=== PATIENT | male | born 1990 | race Caucasian/White ===

== ENCOUNTER 2025-03-02 00:50 | Emergency (ER) | payer OTHER ==
[~2025-03-02] VITALS: Ht 162.6 cm; Wt 64.0 kg
[2025-03-02 01:00] VITALS: O2SAT 98
[2025-03-02] MEDS: VISCOUS LIDOCAINE 2% 15 ML UDC PO ONE (02:12)
[2025-03-02] MEDS: MAGNESIUM/ALUMINUM HYDROXIDE/SIMETHICONE 30ML UDC PO ONE (02:12)
[2025-03-02] MEDS ORDERED: MAG355OR21 MT (02:35)
[2025-03-02] MEDS ORDERED: FAMO-135 PO (02:35)
[2025-03-02 02:44] VITALS: BP 128/84; PULSE 80; RESP 18; TEMP 36.9; O2SAT 98
== END 2025-03-02 02:45 | disposition home or self-care (01) ==
LOC: ER 00:50
DX: K29.70 Gastritis, unspecified, without bleeding (principal); E11.9 Type 2 diabetes mellitus without complications; Z79.899 Other long term (current) drug therapy; Z88.6 Allergy status to analgesic agent
CPT/HCPCS: 99283

== ENCOUNTER 2025-04-02 13:42 | Emergency (ER) | payer OTHER ==
[~2025-04-02] VITALS: Ht 157.5 cm; Wt 68.0 kg
[~2025-04-02 13:42] MED LIST: FAMO-135 PO; MAG355OR21 MT
[2025-04-02 13:54] VITALS: O2SAT 100
[2025-04-02 14:30] LABS: BASOPHILS % 0.5 % (0.0-2.0); CHLORIDE 105 mEq/L (98-107); EOSINOPHILS % 7.5 % (0.0-5.0); HEMATOCRIT. 40.8 % (42.0-52.0); HEMOGLOBIN. 14.2 g/dL (14.0-18.0); LYMPHOCYTES % 17.9 % (20.0-50.0); MEAN CORPUSCULAR HGB CONC 34.8 g/dL (31.0-37.0); MEAN CORPUSCULAR VOLUME 83.4 fL (80.0-94.0); MEAN PLATELET VOLUME 6.8 fl (7.4-10.4); MONOCYTES % 5.3 % (2.0-8.0); NEUTROPHILS % 68.8 % (40.0-76.0); PLATELET 263 x1000/uL (130-400); POTASSIUM 3.9 mEq/L (3.5-5.1); RED BLOOD CELL COUNT 4.89 mill/uL (4.7-6.1); RED CELL DISTRIBUTION WIDTH 14.2 % (11.6-14.6); SODIUM 141 mEq/L (136-145); WHITE BLOOD COUNT 8.7 x1000/uL (4.5-11.0)
[2025-04-02 14:31] LABS: CARBON DIOXIDE 31 mEq/L (21-32)
[2025-04-02 14:32] LABS: CALCIUM 9.7 mg/dL (8.7-10.4)
[2025-04-02 14:35] VITALS: BP 143/91; PULSE 80; RESP 18; TEMP 36.8; O2SAT 99
[2025-04-02 14:36] LABS: GLUCOSE 135 mg/dL (70-105)
[2025-04-02 14:37] LABS: UREA NITROGEN BLOOD 14 mg/dL (9-23)
[2025-04-02] MEDS: ACETAMINOPHEN 500MG TABLET PO ONE (15:52)
[2025-04-02] MEDS: ONDANSETRON HCL 4MG TABLET PO ONE (15:52)
[2025-04-02] MEDS: MAGNESIUM/ALUMINUM HYDROXIDE/SIMETHICONE 30ML UDC PO ONE (15:52)
[2025-04-02 15:59] LABS: CLARITY URINE CLEAR (CLEAR); GLUCOSE URINE NEGATIVE (NEGATIVE); KETONES URINE NEGATIVE (NEGATIVE); LEUKOCYTE ESTERASE URINE TRACE (NEGATIVE); NITRITE URINE NEGATIVE (NEGATIVE); OCCULT BLOOD URINE NEGATIVE (NEGATIVE); PH URINE 7.5 (4.5-8.0); PROTEIN URINE NEGATIVE (NEGATIVE); SPECIFIC GRAVITY URINE 1.012 (1.005-1.030)
[2025-04-02 16:11] LABS: ALANINE AMINOTRANSFERASE 39 IU/L (10-49); ALBUMIN 5.2 g/dL (3.2-4.8); ASPARTATE AMINOTRANSFERASE 28 IU/L (<34); BILIRUBIN DIRECT 0.1 mg/dL (<=3.0); BILIRUBIN TOTAL 0.4 mg/dL (0.1-1.0); PROTEIN TOTAL 7.5 g/dL (6.0-8.3)
[2025-04-02 16:26] LABS: COLOR URINE STRAW (YELLOW)
[2025-04-02 16:27] LABS: BACTERIA URINE NONE SEEN; RBC URINE NONE SEEN /hpf (0-2); SQUAMOUS EPITHELIAL CELL URINE RARE /lpf (RARE/1+); WBC URINE 0-2 /hpf (0-2)
== END 2025-04-02 16:03 | disposition left against medical advice (07) ==
LOC: ER 13:42
DX: K29.70 Gastritis, unspecified, without bleeding (principal); F12.10 Cannabis abuse, uncomplicated; E11.9 Type 2 diabetes mellitus without complications; Z88.6 Allergy status to analgesic agent
CPT/HCPCS: 80076; 80048; 81003; 83690; 85025; 36415; 99283; Q0162; Z7610

== ENCOUNTER 2025-04-23 01:24 | Emergency (ER) | payer OTHER ==
[~2025-04-23] VITALS: Ht 162.6 cm; Wt 63.0 kg
[2025-04-23 01:34] VITALS: O2SAT 97
[2025-04-23] MEDS ORDERED: AMOX1TAB16 MT (03:21)
[2025-04-23 03:28] VITALS: BP 114/72; PULSE 70; RESP 16; TEMP 36.8; O2SAT 97
== END 2025-04-23 03:27 | disposition home or self-care (01) ==
LOC: ER 01:24
DX: H66.90 Otitis media, unspecified, unspecified ear (principal); F12.10 Cannabis abuse, uncomplicated; Z88.5 Allergy status to narcotic agent; Z88.6 Allergy status to analgesic agent; Z79.899 Other long term (current) drug therapy; Z98.890 Other specified postprocedural states
CPT/HCPCS: 99283

== ENCOUNTER 2025-04-25 13:50 | Emergency (ER) | payer OTHER ==
[~2025-04-25] VITALS: Ht 165.1 cm; Wt 68.0 kg
[~2025-04-25 13:50] MED LIST changes: +AMOX1TAB16 MT
[2025-04-25 14:07] VITALS: O2SAT 99
[2025-04-25] MEDS ORDERED: CIPHCO EACH EAR (14:55)
[2025-04-25 15:01] VITALS: BP 110/85; PULSE 82; RESP 16; TEMP 37.2; O2SAT 99
== END 2025-04-25 15:01 | disposition home or self-care (01) ==
LOC: ER 13:50
DX: H60.8X3 Other otitis externa, bilateral (principal); E11.9 Type 2 diabetes mellitus without complications; Z85.71 Personal history of Hodgkin lymphoma; Z88.5 Allergy status to narcotic agent; Z88.6 Allergy status to analgesic agent
CPT/HCPCS: 99283

== ENCOUNTER 2025-06-08 02:04 | Emergency (ER) | payer OTHER ==
[~2025-06-08] VITALS: Ht 160 cm; Wt 61.0 kg
[~2025-06-08 02:04] MED LIST changes: +CIPHCO EACH EAR
[2025-06-08 02:20] VITALS: PULSE 79; RESP 18; O2SAT 99
[2025-06-08 02:26] VITALS: BP 106/71; TEMP 36.7; O2SAT 96
[2025-06-09] MEDS ORDERED: IBUP-2029 MT (04:08)
[2025-06-09] MEDS ORDERED: METH-653 MT (04:08)
[2025-06-09] MEDS ORDERED: LIDO700A30 TP (04:09)
== END 2025-06-08 03:50 | disposition home or self-care (01) ==
LOC: ER 02:04
DX: H92.02 Otalgia, left ear (principal); E11.9 Type 2 diabetes mellitus without complications; F10.90 Alcohol use, unspecified, uncomplicated; F12.90 Cannabis use, unspecified, uncomplicated; Z87.19 Personal history of other diseases of the digestive system; Z88.5 Allergy status to narcotic agent; Z88.6 Allergy status to analgesic agent
CPT/HCPCS: 99282

== ENCOUNTER 2025-06-09 01:44 | Emergency (ER) | payer OTHER ==
[~2025-06-09] VITALS: Ht 160 cm; Wt 62.2 kg
[2025-06-09 01:52] VITALS: O2SAT 97
[2025-06-09 01:56] VITALS: BP 106/63; PULSE 93; RESP 20; TEMP 37.1; O2SAT 99
[2025-06-09 02:21] LABS: BASOPHILS % 0.6 % (0.0-2.0); EOSINOPHILS % 6.3 % (0.0-5.0); HEMATOCRIT. 36.6 % (42.0-52.0); HEMOGLOBIN. 12.5 g/dL (14.0-18.0); LYMPHOCYTES % 27.2 % (20.0-50.0); MEAN PLATELET VOLUME 6.8 fl (7.4-10.4); MONOCYTES % 5.3 % (2.0-8.0); NEUTROPHILS % 60.6 % (40.0-76.0); PLATELET 221 x1000/uL (130-400); RED BLOOD CELL COUNT 4.40 mill/uL (4.7-6.1); RED CELL DISTRIBUTION WIDTH 13.8 % (11.6-14.6)
[2025-06-09 02:32] LABS: INR 0.9
[2025-06-09 02:34] LABS: CREATININE 1.1 mg/dL (0.6-1.3); ETHANOL BLOOD < 10 mg/dL (<10); TROPONIN I HIGH SENSITIVITY 11 ng/L (3.0-53); UREA NITROGEN BLOOD 18 mg/dL (9-23)
[2025-06-09 02:36] LABS: ASPARTATE AMINOTRANSFERASE 23 IU/L (<34); BILIRUBIN DIRECT < 0.1 mg/dL (<=3.0); BILIRUBIN TOTAL 0.3 mg/dL (0.1-1.0); PROTEIN TOTAL 6.4 g/dL (6.0-8.3)
[2025-06-09 03:07] LABS: *AMPHETAMINES SCREEN URINE NEGATIVE (NEGATIVE); *BARBITURATES SCREEN URINE NEGATIVE (NEGATIVE); *BENZODIAZEPINES SCREEN URINE NEGATIVE (NEGATIVE); *COCAINE SCREEN URINE NEGATIVE (NEGATIVE); CANNABINOID URINE SCREEN PRESUMPTIVE POSITIVE (NEGATIVE); ECSTASY MDMA SCREEN URINE NEGATIVE (NEGATIVE); METHADONE URINE SCREEN NEGATIVE (NEGATIVE); OPIATES URINE SCREEN PRESUMPTIVE POSITIVE (NEGATIVE); PHENCYCLIDINE URINE SCREEN NEGATIVE (NEGATIVE)
[2025-06-09 03:09] VITALS: TEMP 98.8
[2025-06-09] MEDS: ACETAMINOPHEN 325MG TABLET PO ONE (03:09)
[2025-06-09] MEDS: METHOCARBAMOL 500MG TABLET PO ONE (03:09)
[2025-06-09] MEDS: HYDROCODONE/ACETAMINOPHEN 5/325MG TABLET PO ONE (03:25)
[2025-06-09] MEDS ORDERED: METH-653 MT (04:08)
[2025-06-09] MEDS ORDERED: IBUP-2029 MT (04:08)
[2025-06-09] MEDS ORDERED: LIDO700A30 TP (04:09)
== END 2025-06-09 04:30 | disposition home or self-care (01) ==
LOC: ER 01:44
DX: S33.5XXA Sprain of ligaments of lumbar spine, initial encounter (principal); E11.9 Type 2 diabetes mellitus without complications; F12.90 Cannabis use, unspecified, uncomplicated; R55 Syncope and collapse; R06.02 Shortness of breath; C85.9A Non-Hodgkin lymphoma, unspecified, in remission; Z79.899 Other long term (current) drug therapy; Z88.5 Allergy status to narcotic agent; Z88.6 Allergy status to analgesic agent; X58.XXXA Exposure to other specified factors, initial encounter; Y93.89 Activity, other specified; Y92.89 Other specified places as the place of occurrence of the external cause; Y99.8 Other external cause status
CPT/HCPCS: 36415; 71045; 80048; 80076; 80305; 80320; 83735; 83880; 84484; 85025; 85379; 93005; 99285; G0480

== ENCOUNTER 2025-06-12 00:56 | Emergency (ER) | payer OTHER ==
[~2025-06-12] VITALS: Ht 162.6 cm; Wt 61.0 kg
[~2025-06-12 00:56] MED LIST changes: +IBUP-2029 MT; +LIDO700A30 TP; +METH-653 MT
[2025-06-12 00:59] VITALS: O2SAT 99
[2025-06-12 01:37] VITALS: BP 104/63; PULSE 88; RESP 18; TEMP 36.6; O2SAT 99
[2025-06-12] MEDS ORDERED: ACET-2708 MT (03:40)
[2025-06-12] MEDS: ACETAMINOPHEN 325MG TABLET PO ONE (04:33)
[2025-06-12] MEDS: DEXAMETHASONE 10 MG/ML VIAL IM ONE (04:33)
== END 2025-06-12 04:34 | disposition home or self-care (01) ==
LOC: ER 00:56
DX: S93.402A Sprain of unspecified ligament of left ankle, initial encounter (principal); E11.9 Type 2 diabetes mellitus without complications; F10.90 Alcohol use, unspecified, uncomplicated; F12.90 Cannabis use, unspecified, uncomplicated; Z79.52 Long term (current) use of systemic steroids; Z88.5 Allergy status to narcotic agent; Z88.6 Allergy status to analgesic agent; X50.1XXA Overexertion from prolonged static or awkward postures, initial encounter; X58.XXXA Exposure to other specified factors, initial encounter; Y93.89 Activity, other specified; Y92.89 Other specified places as the place of occurrence of the external cause; Y99.8 Other external cause status; Y90.9 Presence of alcohol in blood, level not specified
CPT/HCPCS: 73610; 99283; Z7610